=== PATIENT | female | born 1950 | race Caucasian/White ===

== ENCOUNTER → 2025-04-09 09:20 | Outpatient (REF) | payer MEDICARE, OTHER, SELFPAY ==
[2025-04-09 12:29] LABS: Glucose 257 mg/dl (70-99); HDL Cholesterol 47 mg/dl
[2025-04-09 13:05] LABS: Glycohemoglobin (HgbA1c) 10.0 % (4.0-5.9)
[2025-04-09 13:18] LABS: LDL Cholesterol, Calculated 144 mg/dl; Very Low Density Lipoprotein 44 mg/dl (0-30)
[2025-04-09 16:00] LABS: Microalbumin, Random Urine 56.3 mg/dl (0.6-1.7)
== END ==
LOC: HWWDC 09:20
PROVIDERS: ATTENDING PHYSICIAN Physician Assistant Medical
DX: Z12.31 Encounter for screening mammogram for malignant neoplasm of breast (principal); E11.65 Type 2 diabetes mellitus with hyperglycemia; E78.1 Pure hyperglyceridemia; Z13.820 Encounter for screening for osteoporosis; Z78.0 Asymptomatic menopausal state; E06.9 Thyroiditis, unspecified
CPT/HCPCS: 36415; 76536; 77063; 77067; 80061; 82043; 82570; 82947; 83036